=== PATIENT | female | born 1935 | race Caucasian/White ===

== ENCOUNTER → 2018-09-27 12:58 | Outpatient (CLI) | payer MEDICARE, OTHER, SELFPAY ==
[2018-09-27 13:17] LABS: Hematocrit 41.2 % (37-47); Hemoglobin 13.5 g/dl (12.0-15.0); Mean Corp Hgb Conc 32.8 g/gl (32-36); Mean Corpuscular Volume 91.6 fL (81-99); Mean Platelet Vol. 10.7 fl (6.2-12.0); Platelet Count 226 K/mm3 (150-450); RBC Distribution Width CV 13.3 % (11.6-14.6); RBC Distribution Width SD 43.9 fl (35.1-43.9); White Blood Count 6.6 K/mm3 (4.4-11.0)
--- NOTE | 2018-09-27 13:17 | EKG12_ITS ---
Test Reason : PRE-OP Blood Pressure : / mmHG Vent. Rate : 072 BPM Atrial Rate : 072 BPM P-R Int : 154 ms QRS Dur : 082 ms QT Int : 412 ms P-R-T Axes : 068 -05 028 degrees QTc Int : 451 ms Normal sinus rhythm Nonspecific ST abnormality Abnormal ECG Confirmed by YFN SCHREIBER, LAUREL ([id number]), assistant film editor RIVERA HUTSON ([id number] on 09/28/2018 3:24:30 PM Referred By: Chano Sterling Confirmed By:LAUREL COULTER MD
[2018-09-27 13:18] LABS: Scan Indicated on CBC? Y/N NO
[2018-09-27 13:38] LABS: Anion Gap 11 (5-15); BUN 13 mg/dL (7-18); Calcium,Total 8.8 mg/dL (8.5-10.1); Chloride 102 mmol/L (98-107); Creatinine, Serum 0.68 mg/dL (0.55-1.02); EST Glomerular Filtration Rate 88 mL/min (>60); Est Glom Filt Rate - Afr Amer 106 mL/min (>60); Glucose 102 mg/dL (74-106); Potassium 3.7 mmol/L (3.5-5.1); Sodium Level 140 mmol/L (136-145)
--- OUTSIDE RECORDS SUMMARY | 2018-12-30 03:53 | XMS RPT_ITS ---
:1935 Author Organization OHIP Support Name Relationship Address Phone R Unavailable Unavailable Unavailable SIEGRIST, MATIAS Unavailable [address] + [place] [address] R Unavailable Unavailable Unavailable SIEGRIST, MATIAS Unavailable [address] + [place] [address] SIEGRIST, FORREST Unavailable [address] + [place] [address] SIEGRIST, FORREST Unavailable [address] + [place] [id number] SIEGRIST, FORREST Unavailable [address] + [place] [address] SIEGRIST, FORREST Unavailable [address] + [place] [address] SIEGRIST, FORREST Unavailable [address] + [place] [address] SIEGRIST, FORREST Unavailable [address] + [place] [address] SIEGRIST, FORREST Unavailable [address] + [place] [address] SIEGRIST, FORREST Unavailable [address] + [place] [address] SIEGRIST, FORREST Unavailable [address] + [place] [address] SIEGRIST, FORREST Unavailable [address] + [place] [address] SIEGRIST, FORREST Unavailable [address] + [place] [address] SIEGRIST, FORREST Unavailable [address] + [place] [address] Care Team Providers Name Role Phone HARSHA RUIZ MD Attending Kaylah LAKE MD., DR. LEXY Crawford Primary Care Unavailable HARSHA RUIZ MD Attending Unavailable GABRIELA HOLRBOOK, DR. LEXY Crawford Primary Care Unavailable HARSHA RUIZ MD Attending Unavailable GABRIELA HOLBROOK, DR. LEXY Crawford Primary Care Unavailable HARSHA RUIZ MD Attending Unavailable GABRIELA HOLBROOK, DR. LEXY Crawford Primary Care Unavailable HARSHA RUIZ MD Attending Unavailable GABRIELA HOLBROOK, DR. LEXY Crawford Primary Care Unavailable HARSHA RUIZ MD Attending Unavailable GABRIELA HOLBROOK, DR. LEXY Crawford Primary Care Unavailable Chano Sterling Attending Unavailable Chano Sterling Referring Unavailable LEXY LAKE Primary Care Unavailable Yeison Bray Attending Unavailable Chano Sterling Referring Unavailable PROBLEMS PROBLEMS DATE TYPE CONDITION / CODE ATTENDING STATUS SOURCE 09/27/2018 Unknown Z01.810 - Encounter Chano Sterling Active Jered for preprocedural [facility] examination / Repository Z01.810(ICD-10) 09/27/2018 Unknown Z01.818 - Encounter Chano Sterling Active Jered for other [facility] preprocedural Hospital examination / Repository Z01.818(ICD-10) 10/20/2018 Unknown R94.31 - Abnormal Yeison Bray Active Jered electrocardiogram Community [ECG] [EKG] / Hospital R94.31(ICD-10) Repository PROCEDURES PROCEDURES No Procedure Records FoundRESULTS RESULTS 12 LEAD ELECTROCARDIOGRAM Observed: 09/28/2018 Status: F Source: JERED 3:24 PM [facility] REPOSITORY [facility] Cardiovascular Services [address] [place] [address] 12 Lead EKG 09/27/18 1330 MR#: [id number] Acct: [id number] Name: EVERARDO ELIZONDO Rep #: [id number] : 1935 82 From: Yeison Bray MD Attending Dr: Chano Pro Status: REG CLI Ordering Dr: Chano Sterling PA-C Date: 09/27/18 Location: LAB Sex: F C Admitted: Test Reason : PRE-OP Blood Pressure : / mmHG Vent. Rate : 072 BPM Atrial Rate : 072 BPM P-R Int : 154 ms QRS Dur : 082 ms QT Int : 412 ms P-R-T Axes : 068 -05 028 degrees QTc Int : 451 ms Normal sinus rhythm Nonspecific ST abnormality Abnormal ECG Confirmed by YFN SCHREIBER, YEISON ([id number]), acquisitions editor RIVERA HUTSON ([id number]) on 09/28/2018 3:24:30 PM Referred By: Chano Sterling Confirmed By:YEISON BRAY MD 09/28/18 1524 Date Yeison Bray MD CC: Lexy Lake MD; Chano GUNDERSON Signed CBC-COMPLETE BLOOD CNT Collected: 09/27/2018 Status: F Source: JERED NO DIFF 1:07 PM [facility] REPOSITORY TYPE CODE TESTS RESULT OUT OF RANGE REFERENCE UNITS LAB L100.1000 4.4-11.0 K/mm3 Normal WBC 6.6 LAB L100.1200 4.2-5.4 M/mm3 Normal RBC 4.50 LAB L100.1300 12.0-15.0 g/dl Normal HGB 13.5 LAB L100.1400 37-47 % Normal HCT 41.2 LAB L100.1500 81-99 fL Normal MCV 91.6 LAB L100.1600 27.0-32.0 pg Normal MCH 30.0 LAB L100.1700 32-36 g/gl Normal MCHC 32.8 LAB L100.1810 11.6-14.6 % Normal RDW CV 13.3 LAB L100.1820 35.1-43.9 fl Normal RDW SD 43.9 LAB L100.1900 150-450 K/mm3 Normal PLT 226 LAB L100.2000 6.2-12.0 fl Normal MPV 10.7 Performed By: #### L100.0500 #### [facility] [address] [place], [address] BASIC METABOLIC Collected: 09/27/2018 Status: F Source: JERED PROFILE (BMP) 1:07 PM [facility] REPOSITORY TYPE CODE TESTS RESULT OUT OF RANGE REFERENCE UNITS LAB L501.0100 74-106 mg/dL Normal GLU 102 Result Comment: Fasting Glucose result from 100 to 125 mg/dL suggests IMPAIRED HOMEOSTASIS per A.D.A. criteria. Please note revised GLUCOSE reference range effective 2017. LAB L501.1000 7-18 mg/dL Normal BUN 13 LAB L501.1100 0.55-1.02 mg/dL Normal CREAT,SERUM 0.68 Result Comment: The validity of the calculated GFR AND GFRAA in patients over 70 years has not been determined. Clinical correlation is essential. LAB L501.1110 >60 mL/min Normal EST GFR 88 Result Comment: Non- GFR Calc LAB L501.1115 >60 mL/min Normal EST GFR - AA 106 Result Comment: GFR Calc LAB L501.1300 10-20 RATIO Normal BUN/CRE 19.0 LAB L501.2200 8.5-10.1 mg/dL CA Normal 8.8 LAB L501.5300 136-145 mmol/L NA Normal 140 LAB L501.5600 3.5-5.1 mmol/L K Normal 3.7 LAB L501.5900 98-107 mmol/L CL Normal 102 LAB L501.6100 21.0-32.0 mmol/L Normal CO2 27.0 LAB L501.6200 5-15 Normal GAP 11 Performed By: #### L500.2500 #### [facility] [address] [place], [address] CMP Collected: 08/24/2018 Status: F Source: [facility] 11:09 AM [facility] REPOSITORY TYPE CODE TESTS RESULT OUT OF REFERENCE UNITS RANGE LAB GLU(LOINC) 83-110 mg/dL Glucose Level 104 LAB NA(LOINC) 136-145 mmol/L Sodium Level 140 LAB K(LOINC) 3.5-5.1 mmol/L Potassium Level 3.9 LAB CL(LOINC) 98-107 mmol/L Chloride 103 LAB CO2(LOINC) 23-31 mmol/L CO2 30 LAB EBAL(LOINC mEq/L ) Electrolyte Balance 7.0 LAB BUN(LOINC) 7-18 mg/dL BUN High 19 LAB CRE(LOINC) 0.55-1.02 mg/dL Creatinine Lvl (s) 0.75 LAB BC(LOINC) 7-27 ratio BUN/Creatinine 25 Ratio LAB CA(LOINC) 8.4-10.2 mg/dL Calcium Lvl 8.7 LAB PROT(LOINC 6.4-8.2 G/dL ) Total Protein 7.0 LAB ALB(LOINC) 3.4-4.8 G/dL Albumin Level 3.7 LAB GLB(LOINC) G/dL Globulin 3.3 LAB AG(LOINC) 1.1-2.5 ratio A/G Ratio 1.1 LAB BILT(LOINC 0.2-1.0 mg/dL ) Bili Total 0.4 LAB AP(LOINC) 40-135 U/L Alk Phos 117 LAB AST(LOINC) 10-40 U/L AST/SGOT 19 LAB ALT(LOINC) 10-35 U/L ALT/SGPT 28 Performed By: #### CMP, GFR, CA27, CA15 #### [facility] [address] [place] [address] #### CBC, ADIFF, ANEU #### [address] [address] .GFR Collected: 08/24/2018 Status: F Source: [facility] 11:09 AM [facility] REPOSITORY TYPE CODE TESTS RESULT OUT OF REFERENCE UNITS RANGE LAB GFRAA(LOINC ml/min/1.73 ) sqm GFR 90 [place]kin[place] Result Comment: GFR Population mean for , Non- Americans Ages 20-29 = 116 mL/min/1.73 sq.m. Ages 30-39 = 107 mL/min/1.73 sq.m. Ages 40-49 = 99 mL/min/1.73 sq.m. Ages 50-59 = 93 mL/min/1.73 sq.m. Ages 60-69 = 85 mL/min/1.73 sq.m. Ages 70+ = 75 mL/min/1.73 sq.m. Chronic Kidney Disease: Less than 60 mL/min/1.73 square meters End Stage Renal Disease: Less than 15 mL/min/1.73 square meters LAB GFRNO(LOINC) ml/min/1.73sqm GFR Non- 74 Result Comment: GFR Population mean for , Non- Americans Ages 20-29 = 116 mL/min/1.73 sq.m. Ages 30-39 = 107 mL/min/1.73 sq.m. Ages 40-49 = 99 mL/min/1.73 sq.m. Ages 50-59 = 93 mL/min/1.73 sq.m. Ages 60-69 = 85 mL/min/1.73 sq.m. Ages 70+ = 75 mL/min/1.73 sq.m. Chronic Kidney Disease: Less than 60 mL/min/1.73 square meters End Stage Renal Disease: Less than 15 mL/min/1.73 square meters Performed By: #### CMP, GFR, CA27, CA15 #### [address] [address] #### CBC, ADIFF, ANEU #### [address] [address] CBC Collected: 08/24/2018 Status: F Source: [facility] 11:09 AM [facility] REPOSITORY TYPE CODE TESTS RESULT OUT OF REFERENCE UNITS RANGE LAB WBC(LOINC) 4.60-10.80 10 3/mcL WBC 5.50 LAB RBCCT(LOINC 4.20-5.40 10 6/mcL ) RBC 4.72 LAB HGB(LOINC) 12.0-16.0 G/dL Hgb 14.1 LAB HCT(LOINC) 37.0-47.0 % Hct 42.9 LAB MCV(LOINC) 80.0-94.0 fL MCV 90.8 LAB MCH(LOINC) 27.0-31.2 pg MCH 29.8 LAB MCHC(LOINC) 33.0-37.0 G/dL Low MCHC 32.9 LAB RDW(LOINC) 11.5-14.5 % RDW 13.3 LAB PLT(LOINC) 130-400 10 3/mcL Platelet 170 LAB MPV(LOINC) 7.4-10.4 fL MPV 9.7 Performed By: #### CMP, GFR, CA27, CA15 #### [address] [address] #### CBC, ADIFF, ANEU #### [address] [address] .AUTO DIFF Collected: 08/24/2018 Status: F Source: [facility] 11:09 AM [facility] REPOSITORY TYPE CODE TESTS RESULT OUT OF REFERENCE UNITS RANGE LAB LOLA(LOINC) 37.0-80.0 % Neutrophil % 65.9 LAB LYM(LOINC) 10.0-50.0 % Lymphocyte % 25.4 LAB MON(LOINC) 1.7-13.0 % Monocyte % 7.5 LAB EO(LOINC) 0.0-7.0 % Eosinophil % 0.8 LAB BAS(LOINC) 0.0-2.5 % Basophil % 0.4 LAB ABLYM(LOIN 0.77-3.85 10 3/mcL C) Lymphocyte, 1.40 Absolute LAB EMERALD(LOINC 0.15-1.00 10 3/mcL ) Monocyte, 0.40 Absolute LAB AEOS(LOINC 0.00-0.40 10 3/mcL ) Eosinophil, 0.00 Absolute LAB ABAS(LOINC 0.00-0.19 10 3/mcL ) Basophil, 0.00 Absolute Performed By: #### CMP, GFR, CA27, CA15 #### [place] [address] #### CBC, ADIFF, ANEU #### [address] [address] .NEUABS Collected: 08/24/2018 Status: F Source: [facility] 11:09 AM [facility] REPOSITORY TYPE CODE TESTS RESULT OUT OF REFERENCE UNITS RANGE LAB ANEU(LOINC) 2.85-6.16 10 3/mcL Neutrophil, 3.70 Absolute Performed By: #### CMP, GFR, CA27, CA15 #### [place] [address] #### CBC, ADIFF, ANEU #### [address] [address] CA27 Collected: 08/24/2018 Status: F Source: [facility] 11:09 [facility] REPOSITORY TYPE CODE TESTS RESULT OUT OF RANGE REFERENCE UNITS LAB CA27(LOINC) 0.0-38.6 U/mL CA 27.29 35.5 Performed By: #### CMP, GFR, CA27, CA15 #### [place] [address] #### CBC, ADIFF, ANEU #### [address] [address] CA15 Collected: 08/24/2018 Status: F Source: [facility] 11:09 AM [facility] REPOSITORY TYPE CODE TESTS RESULT OUT OF RANGE REFERENCE UNITS LAB CA15(LOINC) 0.0-47.0 U/mL High CA 15-3 49.2 Performed By: #### CMP, GFR, CA27, CA15 #### [facility] [address] [place], [place] [id number] #### CBC, ADIFF, ANEU #### [facility] [address] [place], [place] [address] CT THORAX W/ CONTRAST Observed: 05/25/2018 Status: F Source: [facility] 9:45 AM [facility] REPOSITORY ORIGINAL CT THORAX W/ CONTRAST CLINICAL STATEMENT: BREAST CA COMPARISON: 12/01/2017 FINDINGS:There is been a LEFT axillary dissection. Calcified plaque is seen within the aorta which is normal caliber. The major airways and main pulmonary arteries are normal in appearance. The esophagu s is normal in course and caliber. A stable RIGHT hilar lymph node is seen which measures 9 mm in short axis. No mediastinal or hilar adenopathy is identified. Limited images through the upper abdomen redemonstrates multiple hepatic cysts. The CT of the abdomen and pelvis will be reported separately. No pleural effusion is identified. Emphysematous changes are again seen within the lungs. The previously identified 5 mm nodule within the RIGHT upper lobe on image #31 has not significantly changed. Two 3 mm nodules are seen within the RIGHT lower lobe on image #38, not significantly changed. A stable 6 mm nodule seen at the RIGHT lung base on image #64. No new pulmonary nodules or masses are ident ified. No acute infiltrate is seen. Degenerative changes are seen within the spine. No suspicious osseous lesion is identified. IMPRESSION:Stable tiny pulmonary nodules. There has been no significant change from the prior exam. This exam was performed according to our departmental dose optimization program, and includes the following measures where applicable: automated exposure control, adjustment of the mAs and/or kVp accord ing to patient size and/or exam, and an iterative reconstruction algorithm. Interpreted By: Michelle Greene MD Preliminary Report By: Michelle Greene MD Electronically Signed By: Michelle Greene MD Dictated Date: 05/26/2018 1:16:02 PM Prelim Date: 05/26/2018 1:16:02 PM Sign Date: 05/26/2018 1:25:[address] ABDOMEN/PELVIS Observed: 05/25/2018 Status: F Source: [facility] W/CONTRAST 9:30 AM [facility] REPOSITORY ORIGINAL CT ABDOMEN/PELVIS W/CONTRAST CLINICAL STATEMENT: BREAST CA. COMPARISON: CT abdomen and pelvis 12/01/2017 TECHNIQUE: Axial images were obtained from the lung bases through the pubic symphysis after the administration of IV and PO contrast. Coronal and sagittal reformatted images were generated from the axia l dataset. This exam was performed according to our departmental dose optimization program, and includes the following measures where applicable: automated exposure control, adjustment of the mAs and/or kVp according to patient size and/or exam, and an iterative reconstruction algorithm. FINDINGS: CT thorax will be reported separately. There are stable hepatic hypodensities. The spleen, adrenal glands, gallbladder and biliary system and pancreas are within normal limits. The kidneys enhance symmetrically. There are stable bilateral renal cysts. No hydronephrosis. The large and small bowel are normal in caliber. There is colonic diverticulosis without CT evidence of acute diverticulitis. The appendix is reportedly surgically absent. No free intraperitoneal fluid or air is identified. No pathologically enlarged lymph nodes. The aorta is atherosclerotic without aneurysmal dilation. The uterus is present. No adnexal masses. The bladder is grossly within normal limits. Surgical clips are seen within the RIGHT inguinal region. Degenerative changes are seen within the spine. There is redemonstration of a sclerotic lesion within the posterior aspect of the L3 vertebral body which is not significantly changed. No new osseous lesions. IMPRESSION: No acute process or significant interval change. Interpreted By: Elsa Bravo MD Preliminary Report By: Elsa Bravo MD Electronically Signed By: Elsa Bravo MD Dictated Date: 05/26/2018 8:38:33 AM Prelim Date: 05/26/2018 8:43:42 AM Sign Date: 05/26/2018 8:51:18 PM CBC Collected: 05/18/2018 Status: F Source: [place] [place] 9:50 AM [facility] REPOSITORY TYPE CODE TESTS RESULT OUT OF REFERENCE UNITS RANGE LAB WBC(LOINC) 4.60-10.80 10 3/mcL WBC 4.90 LAB RBCCT(LOINC 4.20-5.40 10 6/mcL ) RBC 4.54 LAB HGB(LOINC) 12.0-16.0 G/dL Hgb 13.8 LAB HCT(LOINC) 37.0-47.0 % Hct 40.9 LAB MCV(LOINC) 80.0-94.0 fL MCV 90.2 LAB MCH(LOINC) 27.0-31.2 pg MCH 30.4 LAB MCHC(LOINC) 33.0-37.0 G/dL MCHC 33.7 LAB RDW(LOINC) 11.5-14.5 % RDW 13.4 LAB PLT(LOINC) 130-400 10 3/mcL Platelet 168 LAB MPV(LOINC) 7.4-10.4 fL MPV 9.5 Performed By: #### CBC, ADIFF, ANEU #### [address] [address] #### CMP, GFR, CA27, CA15 #### [address] [address] .AUTO DIFF Collected: 05/18/2018 Status: F Source: [facility] 9:50 AM [facility] REPOSITORY TYPE CODE TESTS RESULT OUT OF REFERENCE UNITS RANGE LAB LOLA(LOINC) 37.0-80.0 % Neutrophil % 56.4 LAB LYM(LOINC) 10.0-50.0 % Lymphocyte % 33.1 LAB MON(LOINC) 1.7-13.0 % Monocyte % 8.6 LAB EO(LOINC) 0.0-7.0 % Eosinophil % 1.5 LAB BAS(LOINC) 0.0-2.5 % Basophil % 0.4 LAB ABLYM(LOIN 0.77-3.85 10 3/mcL C) Lymphocyte, 1.60 Absolute LAB EMERALD(LOINC 0.15-1.00 10 3/mcL ) Monocyte, 0.40 Absolute LAB AEOS(LOINC 0.00-0.40 10 3/mcL ) Eosinophil, 0.10 Absolute LAB ABAS(LOINC 0.00-0.19 10 3/mcL ) Basophil, 0.00 Absolute Performed By: #### CBC, ADIFF, ANEU #### [address] [address] #### CMP, GFR, CA27, CA15 #### [address] [place], [place] [address] .NEUABS Collected: 05/18/2018 Status: F Source: [facility] 9:50 AM [facility] REPOSITORY TYPE CODE TESTS RESULT OUT OF REFERENCE UNITS RANGE LAB ANEU(LOINC) 2.85-6.16 10 3/mcL Low Neutrophil, 2.80 Absolute Performed By: #### CBC, ADIFF, ANEU #### [place] [address] [address] #### CMP, GFR, CA27, CA15 #### [address] [address] CMP Collected: 05/18/2018 Status: F Source: [facility] 9:50 AM [facility] REPOSITORY TYPE CODE TESTS RESULT OUT OF REFERENCE UNITS RANGE LAB GLU(LOINC) 83-110 mg/dL Glucose High Level 112 LAB NA(LOINC) 136-145 mmol/L Sodium Level 141 LAB K(LOINC) 3.5-5.1 mmol/L Potassium Level 3.8 LAB CL(LOINC) 98-107 mmol/L Chloride 105 LAB CO2(LOINC) 23-31 mmol/L CO2 28 LAB EBAL(LOINC mEq/L ) Electrolyte Balance 8.0 LAB BUN(LOINC) 7-18 mg/dL BUN 15 LAB CRE(LOINC) 0.55-1.02 mg/dL Creatinine Lvl (s) 0.71 LAB BC(LOINC) 7-27 ratio BUN/Creatinine 21 Ratio LAB CA(LOINC) 8.4-10.2 mg/dL Calcium Lvl 8.8 LAB PROT(LOINC 6.4-8.2 G/dL ) Total Protein 6.8 LAB ALB(LOINC) 3.4-4.8 G/dL Albumin Level 3.6 LAB GLB(LOINC) G/dL Globulin 3.2 LAB AG(LOINC) 1.1-2.5 ratio A/G Ratio 1.1 LAB BILT(LOINC 0.2-1.0 mg/dL ) Bili Total 0.3 LAB AP(LOINC) 40-135 U/L Alk Phos 100 LAB AST(LOINC) 10-40 U/L AST/SGOT 24 LAB ALT(LOINC) 10-35 U/L ALT/SGPT 33 Performed By: #### CBC, ADIFF, ANEU #### [place] [address] [place], [place] [address] #### CMP, GFR, CA27, CA15 #### [address] [address] .GFR Collected: 05/18/2018 Status: F Source: [facility] 9:50 AM [facility] REPOSITORY TYPE CODE TESTS RESULT OUT OF REFERENCE UNITS RANGE LAB GFRAA(LOINC ml/min/1.73 ) sqm GFR 96 [place] Result Comment: GFR Population mean for , Non- Americans Ages 20-29 = 116 mL/min/1.73 sq.m. Ages 30-39 = 107 mL/min/1.73 sq.m. Ages 40-49 = 99 mL/min/1.73 sq.m. Ages 50-59 = 93 mL/min/1.73 sq.m. Ages 60-69 = 85 mL/min/1.73 sq.m. Ages 70+ = 75 mL/min/1.73 sq.m. Chronic Kidney Disease: Less than 60 mL/min/1.73 square meters End Stage Renal Disease: Less than 15 mL/min/1.73 square meters LAB GFRNO(LOINC) ml/min/1.73sqm GFR Non- 79 Result Comment: GFR Population mean for , Non- Americans Ages 20-29 = 116 mL/min/1.73 sq.m. Ages 30-39 = 107 mL/min/1.73 sq.m. Ages 40-49 = 99 mL/min/1.73 sq.m. Ages 50-59 = 93 mL/min/1.73 sq.m. Ages 60-69 = 85 mL/min/1.73 sq.m. Ages 70+ = 75 mL/min/1.73 sq.m. Chronic Kidney Disease: Less than 60 mL/min/1.73 square meters End Stage Renal Disease: Less than 15 mL/min/1.73 square meters Performed By: #### CBC, ADIFF, ANEU #### [place] [address] [place], [place] [address] #### CMP, GFR, CA27, CA15 #### [address] [address] CA27 Collected: 05/18/2018 Status: F Source: [facility] 9:50 AM [facility] REPOSITORY TYPE CODE TESTS RESULT OUT OF RANGE REFERENCE UNITS LAB CA27(LOINC) 0.0-38.6 U/mL High CA 27.29 39.3 Performed By: #### CBC, ADIFF, ANEU #### [address] [address] #### CMP, GFR, CA27, CA15 #### [address] [address] CA15 Collected: 05/18/2018 Status: F Source: [facility] 9:50 AM [facility] REPOSITORY TYPE CODE TESTS RESULT OUT OF RANGE REFERENCE UNITS LAB CA15(LOINC) 0.0-47.0 U/mL High CA 15-3 54.3 Performed By: #### CBC, ADIFF, ANEU #### [address] [address] #### CMP, GFR, CA27, CA15 #### [address] [address] CBC Collected: 01/27/2018 Status: F Source: [facility] 9:39 AM [facility] REPOSITORY TYPE CODE TESTS RESULT OUT OF REFERENCE UNITS RANGE LAB WBC(LOINC) 4.60-10.80 10 3/mcL WBC 5.40 LAB RBCCT(LOINC 4.20-5.40 10 6/mcL ) RBC 4.70 LAB HGB(LOINC) 12.0-16.0 G/dL Hgb 14.4 LAB HCT(LOINC) 37.0-47.0 % Hct 42.5 LAB MCV(LOINC) 80.0-94.0 fL MCV 90.4 LAB MCH(LOINC) 27.0-31.2 pg MCH 30.5 LAB MCHC(LOINC) 33.0-37.0 G/dL MCHC 33.8 LAB RDW(LOINC) 11.5-14.5 % RDW 14.0 LAB PLT(LOINC) 130-400 10 3/mcL Platelet 185 LAB MPV(LOINC) 7.4-10.4 fL MPV 9.9 Performed By: #### CBC, ADIFF, ANEU, CMP, GFR #### [address] [address] #### CA27, CA15 #### [place] [address] .AUTO DIFF Collected: 01/27/2018 Status: F Source: [facility] 9:39 AM [facility] REPOSITORY TYPE CODE TESTS RESULT OUT OF REFERENCE UNITS RANGE LAB LOLA(LOINC) 37.0-80.0 % Neutrophil % 55.6 LAB LYM(LOINC) 10.0-50.0 % Lymphocyte % 32.4 LAB MON(LOINC) 1.7-13.0 % Monocyte % 9.4 LAB EO(LOINC) 0.0-7.0 % Eosinophil % 2.0 LAB BAS(LOINC) 0.0-2.5 % Basophil % 0.6 LAB ABLYM(LOIN 0.77-3.85 10 3/mcL C) Lymphocyte, 1.70 Absolute LAB EMERALD(LOINC 0.15-1.00 10 3/mcL ) Monocyte, 0.50 Absolute LAB AEOS(LOINC 0.00-0.40 10 3/mcL ) Eosinophil, 0.10 Absolute LAB ABAS(LOINC 0.00-0.19 10 3/mcL ) Basophil, 0.00 Absolute Performed By: #### CBC, ADIFF, ANEU, CMP, GFR #### [place] [address] #### CA27, CA15 #### [place] [address] .NEUABS Collected: 01/27/2018 Status: F Source: [facility] 9:39 AM [facility] REPOSITORY TYPE CODE TESTS RESULT OUT OF REFERENCE UNITS RANGE LAB ANEU(LOINC) 2.85-6.16 10 3/mcL Neutrophil, 3.00 Absolute Performed By: #### CBC, ADIFF, ANEU, CMP, GFR #### [place] [address] #### CA27, CA15 #### [place] [address] CMP Collected: 01/27/2018 Status: F Source: [facility] 9:39 AM [facility] REPOSITORY TYPE CODE TESTS RESULT OUT OF REFERENCE UNITS RANGE LAB 1547-9 83-110 mg/dL GLUCOSE 87 LAB NA(LOINC) 136-146 mEq/L Sodium Level 141 LAB K(LOINC) 3.5-5.1 mEq/L Potassium Level 3.9 LAB CL(LOINC) 98-107 mEq/L Chloride 102 LAB CO2(LOINC) 23-31 mEq/L CO2 30 LAB EBAL(LOINC mEq/L ) Electrolyte Balance 9.0 LAB BUN(LOINC) 7.0-18.0 mg/dL BUN 14.8 LAB CRE(LOINC) 0.6-1.2 mg/dL Creatinine Lvl (s) 0.7 LAB BC(LOINC) 7-27 ratio BUN/Creatinine 21 Ratio LAB CA(LOINC) 8.4-10.2 mg/dL Calcium Lvl 9.4 LAB PROT(LOINC 6.0-8.3 G/dL ) Total Protein 7.1 LAB ALB(LOINC) 3.4-4.8 G/dL Albumin Level 4.4 LAB GLB(LOINC) G/dL Globulin 2.7 LAB AG(LOINC) 1.1-2.5 ratio A/G Ratio 1.6 LAB BILT(LOINC 0.2-1.0 mg/dL ) Bili Total 0.3 LAB AP(LOINC) 40-135 IU/L Alk Phos 110 LAB AST(LOINC) 10-40 IU/L AST/SGOT 25 LAB ALT(LOINC) 10-35 IU/L ALT/SGPT 30 Performed By: #### CBC, ADIFF, ANEU, CMP, GFR #### [address] [address] #### CA27, CA15 #### [address] [address] .GFR Collected: 01/27/2018 Status: F Source: [facility] 9:39 AM [facility] REPOSITORY TYPE CODE TESTS RESULT OUT OF REFERENCE UNITS RANGE LAB GFRAA(LOINC ml/min/1.73 ) sqm GFR 96 [place] Result Comment: GFR Population mean for , Non- Americans Ages 20-29 = 116 mL/min/1.73 sq.m. Ages 30-39 = 107 mL/min/1.73 sq.m. Ages 40-49 = 99 mL/min/1.73 sq.m. Ages 50-59 = 93 mL/min/1.73 sq.m. Ages 60-69 = 85 mL/min/1.73 sq.m. Ages 70+ = 75 mL/min/1.73 sq.m. Chronic Kidney Disease: Less than 60 mL/min/1.73 square meters End Stage Renal Disease: Less than 15 mL/min/1.73 square meters LAB GFRNO(LOINC) ml/min/1.73sqm GFR Non- >60 Result Comment: GFR Population mean for , Non- Americans Ages 20-29 = 116 mL/min/1.73 sq.m. Ages 30-39 = 107 mL/min/1.73 sq.m. Ages 40-49 = 99 mL/min/1.73 sq.m. Ages 50-59 = 93 mL/min/1.73 sq.m. Ages 60-69 = 85 mL/min/1.73 sq.m. Ages 70+ = 75 mL/min/1.73 sq.m. Chronic Kidney Disease: Less than 60 mL/min/1.73 square meters End Stage Renal Disease: Less than 15 mL/min/1.73 square meters Performed By: #### CBC, ADIFF, ANEU, CMP, GFR #### [address] [address] #### CA27, CA15 #### [address] [address] CA27 Collected: 01/27/2018 Status: F Source: [facility] 9:39 AM [facility] REPOSITORY TYPE CODE TESTS RESULT OUT OF RANGE REFERENCE UNITS LAB CA27(LOINC) 0.0-38.6 U/mL CA 27.29 30.0 Performed By: #### CBC, ADIFF, ANEU, CMP, GFR #### [address] [address] #### CA27, CA15 #### [address] [address] CA15 Collected: 01/27/2018 Status: F Source: [facility] 9:39 AM [facility] REPOSITORY TYPE CODE TESTS RESULT OUT OF RANGE REFERENCE UNITS LAB CA15(LOINC) 0.0-47.0 U/mL High CA 15-3 50.6 Performed By: #### CBC, ADIFF, ANEU, CMP, GFR #### [facility] [address] [place], [place] [address] #### CA27, CA15 #### [place] [id number] [place] [id number] THORAX W/ CONTRAST Observed: 12/01/2017 Status: F Source: [email or web address] 10:45 AM [facility] REPOSITORY ORIGINAL CT THORAX W/ CONTRAST: Multiplanar coronal, sagittal, axial reconstructions were created and reviewed by the radiologist on a separate workstation. This exam was performed according to our departmental dose optimization progr am, and includes the following measures where applicable: automated exposure control, adjustment of the mAs and/or kVp according to patient size and/or exam, and an iterative reconstruction algorithm. CLINICAL STATEMENT:BREAST CA, PULMONARY METASTATIS, follow- up, history of radiation approximately one year ago COMPARISON: CT thorax dated 03/26/2017 FINDINGS: The heart is not enlarged. No pericardial effusion is seen. The great vessels are normal in caliber. There is minimal calcified atherosclerosis of the aortic arch. The esophagus is normal in caliber. The thyroid gland is normal. No axillary, hilar, or mediastinal lymphadenopathy is identified. Previously described enlarged right paratracheal lymph node has decreased in size and is no longer pathologically enlarged, currently me asuring 9 mm and previously measuring 1.2 cm in short axis. Surgical clips are noted in the left axilla. There are multiple scattered pulmonary nodules that of either decreased in size or remained stable. There is decrease in size of nodular density in the right upper lobe (image 32). Previously described 5 mm pulmonary nodule in the right upper lobe has resolved. Nodular thickening along the left major fissure has improved with the largest nodule measuring 5 mm, previously measuring 9 mm (image 24). The juxtapleural nodules in the left lower lobe have significantly decreased in size with a residual no dule measuring 5 mm (image 48). Nodules adjacent to the left pericardium have nearly completely resolved. There are multiple stable pulmonary nodules. There are a few scattered small pulmonary nodules in left lung apex. The largest of these measures up to 5 mm (image 11). A second software support representative pulmonary n odule in the left lung apex measures 4 mm (image 14). Posterior juxtapleural nodules of the right lower lobe are unchanged (image 51). There is a 3 mm pulmonary nodule in the right lower lobe (image 39) . There is a right lower lobe juxtapleural nodule measuring 3 mm (image 39). All these pulmonary nodules are stable. There is mild paraseptal emphysema most in the bilateral lung apices. No pneumothorax, pleural effusion, or focal consolidation is seen. The trachea and mainstem bronchi are patent. No suspicious osseous lesions are identified. Please see separately dictated CT abdomen/pelvis from the same day for intra-abdominal findings. IMPRESSION: Overall decrease in size and number of pulmonary nodules with some pulmonary nodules remaining unchanged. Decrease in size of mediastinal lymph nodes with no evidence of mediastinal or hilar lymphadenopathy. I have personally reviewed the images of this examination and agree with the resident's findings and interpretation. Interpreted By: Cathi Caldwell MD Preliminary Report By: Lindsay Fine DO Electronically Signed By: Cathi Caldwell MD Dictated Date: 12/01/2017 2:16:05 PM Prelim Date: 12/02/2017 8:49:40 AM Sign Date: 12/02/2017 9:37:[address] ABDOMEN/PELVIS Observed: 12/01/2017 Status: F Source: [place] W/CONTRAST 10:30 AM [facility] REPOSITORY ORIGINAL CT ABDOMEN/PELVIS WITH IV AND ORAL CONTRAST: Multiplanar coronal, sagittal, and axial reconstructions were reviewed on a separate workstation. This exam was performed according to our departmental dose optimization program, and includes the follow ing measures where applicable: automated exposure control, adjustment of the mAs and/or kVp according to patient size and/or exam, and an iterative reconstruction algorithm. CLINICAL STATEMENT: BREAST CA, PULMONARY METASTATIS, follow- up, observe for malignancy COMPARISON: PET/CT dated 11/27/2016, CT abdomen/pelvis dated 05/30/2010 FINDINGS: Please see separately dictated CT thorax from the same day for intrathoracic findings. Multiple hypodensities in the liver are unchanged and consistent with liver cysts. The largest of these cysts is in the inferior right hepatic lobe measuring 2.6 cm (image 34, series 4). The liver is otherwise unremarkable. The gallbladder, pancreas, spleen, and adrenal glands are within normal limits. There is no evidence of hydronephrosis. There are bilateral renal cysts, unchanged. There is an irregular hypodensity within the right kidney on axial imaging that is likely the renal medulla when compared to coronal imaging. The bladder is well distended without focal mass or wall thickening. The uterus and adnexa are unremarkable. There is no free pelvic fluid. The small bowel exhibits no luminal dilatation or wall thickening. The colon is normal in caliber. The appendix is reported as surgically absent. Surgical clips are noted in the right inguinal region wi th adjacent fluid attenuating area consistent with history of hernia repair. There is no abdominal ascites or free intraperitoneal air. The abdominal aorta and IVC are of normal caliber. There is moderate calcified atherosclerosis of the abdominal aorta. No lymphadenopathy is seen in the abdomen or pelvis. There is a sclerotic lesion at L3, consistent with the known metastatic lesion. This area appears more sclerotic than prior PET/CT dated 11/27/2016, currently measuring 2.1 x 2.9 cm. Previously described soft tissue components of this lesion is not well visualized on this exam. No new osseous lesion is identified. IMPRESSION: No evidence of metastatic disease in the abdominal or pelvic cavities. L3 vertebral body lesion is more sclerotic on today's exam. Previously described soft tissue component is not well visualized. No new osseous lesions. I have personally reviewed the images of this examination and agree with the resident's findings and interpretation. Interpreted By: Cathi Caldwell MD Preliminary Report By: Lindsay Fine DO Electronically Signed By: Cathi Caldwell MD Dictated Date: 12/02/2017 8:50:33 AM Prelim Date: 12/02/2017 9:13:56 AM Sign Date: 12/02/2017 9:35:11 AM CBC Collected: 11/04/2017 Status: F Source: [facility] 11:35 AM [facility] REPOSITORY TYPE CODE TESTS RESULT OUT OF REFERENCE UNITS RANGE LAB WBC(LOINC) 4.50-10.80 10 3/mcL WBC 5.70 LAB RBCCT(LOINC 4.10-5.30 10 6/mcL ) RBC 4.65 LAB HGB(LOINC) 12.0-16.0 G/dL Hgb 14.2 LAB HCT(LOINC) 34.0-46.0 % Hct 42.3 LAB MCV(LOINC) 80.0-99.0 fL MCV 91.0 LAB MCH(LOINC) 27.0-33.0 pg MCH 30.6 LAB MCHC(LOINC) 32.0-36.0 G/dL MCHC 33.6 LAB RDW(LOINC) 11.5-15.5 % RDW 13.6 LAB PLT(LOINC) 150-450 10 3/mcL Platelet 162 LAB MPV(LOINC) 6.6-10.5 fL MPV 9.3 Performed By: #### CBC, ADIFF, ANEU, GFR, CMP, CA27, CA15 #### [address] [address] .AUTO DIFF Collected: 11/04/2017 Status: F Source: [facility] 11:35 AM [facility] REPOSITORY TYPE CODE TESTS RESULT OUT OF REFERENCE UNITS RANGE LAB LOLA(LOINC) 50.0-75.0 % Neutrophil % 64.9 LAB LYM(LOINC) 20.0-40.0 % Lymphocyte % 26.0 LAB MON(LOINC) 2.0-13.0 % Monocyte % 8.2 LAB EO(LOINC) 0.0-6.0 % Eosinophil % 0.5 LAB BAS(LOINC) 0.0-2.5 % Basophil % 0.4 LAB ABLYM(LOIN 0.90-4.32 10 3/mcL C) Lymphocyte, 1.50 Absolute LAB EMERALD(LOINC 0.09-1.40 10 3/mcL ) Monocyte, 0.50 Absolute LAB AEOS(LOINC 0.00-0.65 10 3/mcL ) Eosinophil, 0.00 Absolute LAB ABAS(LOINC 0.00-0.27 10 3/mcL ) Basophil, 0.00 Absolute Performed By: #### CBC, ADIFF, ANEU, GFR, CMP, CA27, CA15 #### [address] [address] .NEUABS Collected: 11/04/2017 Status: F Source: [facility] 11:35 AM [facility] REPOSITORY TYPE CODE TESTS RESULT OUT OF REFERENCE UNITS RANGE LAB ANEU(LOINC) 2.25-8.10 10 3/mcL Neutrophil, 3.70 Absolute Performed By: #### CBC, ADIFF, ANEU, GFR, CMP, CA27, CA15 #### [address] [address] .GFR Collected: 11/04/2017 Status: F Source: [facility] 11:35 AM [facility] REPOSITORY TYPE CODE TESTS RESULT OUT OF REFERENCE UNITS RANGE LAB GFRAA(LOINC ml/min/1.73 ) sqm GFR >60 [place] Result Comment: GFR Population mean for , Non- Americans Ages 20-29 = 116 mL/min/1.73 sq.m. Ages 30-39 = 107 mL/min/1.73 sq.m. Ages 40-49 = 99 mL/min/1.73 sq.m. Ages 50-59 = 93 mL/min/1.73 sq.m. Ages 60-69 = 85 mL/min/1.73 sq.m. Ages 70+ = 75 mL/min/1.73 sq.m. Chronic Kidney Disease: Less than 60 mL/min/1.73 square meters End Stage Renal Disease: Less than 15 mL/min/1.73 square meters LAB GFRNO(LOINC) ml/min/1.73sqm GFR Non- >60 Result Comment: GFR Population mean for , Non- Americans Ages 20-29 = 116 mL/min/1.73 sq.m. Ages 30-39 = 107 mL/min/1.73 sq.m. Ages 40-49 = 99 mL/min/1.73 sq.m. Ages 50-59 = 93 mL/min/1.73 sq.m. Ages 60-69 = 85 mL/min/1.73 sq.m. Ages 70+ = 75 mL/min/1.73 sq.m. Chronic Kidney Disease: Less than 60 mL/min/1.73 square meters End Stage Renal Disease: Less than 15 mL/min/1.73 square meters Performed By: #### CBC, ADIFF, ANEU, GFR, CMP, CA27, CA15 #### [place] [address] CMP Collected: 11/04/2017 Status: F Source: [facility] 11:35 AM [facility] REPOSITORY TYPE CODE TESTS RESULT OUT OF REFERENCE UNITS RANGE LAB GLU(LOINC) 82-115 mg/dL Glucose Level 98 LAB NA(LOINC) 136-145 mEq/L Sodium Level 145 LAB K(LOINC) 3.5-5.0 mEq/L Potassium Level 3.9 LAB CL(LOINC) 98-110 mEq/L Chloride 105 LAB CO2(LOINC) 22-32 mEq/L CO2 32 LAB EBAL(LOINC 4.0-15.0 mEq/L ) Electrolyte Balance 8.0 LAB BUN(LOINC) 8.0-22.0 mg/dL BUN 16.0 LAB CRE(LOINC) 0.50-1.20 mg/dL Creatinine Lvl (s) 0.63 LAB BC(LOINC) 10.0-22.0 ratio High BUN/Creatinine 25.4 Ratio LAB CA(LOINC) 8.4-10.1 mg/dL Calcium Lvl 9.5 LAB PROT(LOINC 6.0-8.5 G/dL ) Total Protein 7.3 LAB ALB(LOINC) 3.2-4.8 G/dL Albumin Level 4.0 LAB GLB(LOINC) 1.5-3.8 G/dL Globulin 3.3 LAB AG(LOINC) 0.9-1.6 ratio A/G Ratio 1.2 LAB BILT(LOINC 0.2-1.2 mg/dL ) Bili Total 0.4 LAB AP(LOINC) 38-126 U/L Alk Phos 93 LAB AST(LOINC) 8-34 U/L AST/SGOT 22 LAB ALT(LOINC) 10-49 U/L ALT/SGPT 31 Performed By: #### CBC, ADIFF, ANEU, GFR, CMP, CA27, CA15 #### [address] [address] CA27 Collected: 11/04/2017 Status: F Source: [facility] 11:35 AM [facility] REPOSITORY TYPE CODE TESTS RESULT OUT OF RANGE REFERENCE UNITS LAB CA27(LOINC) 0.0-38.6 U/mL High CA 27.29 46.2 Performed By: #### CBC, ADIFF, ANEU, GFR, CMP, CA27, CA15 #### [address] [address] CA15 Collected: 11/04/2017 Status: F Source: [facility] 11:35 AM [facility] REPOSITORY TYPE CODE TESTS RESULT OUT OF RANGE REFERENCE UNITS LAB CA15(LOINC) 0.0-47.0 U/mL High CA 15-3 48.1 Performed By: #### CBC, ADIFF, ANEU, GFR, CMP, CA27, CA15 #### [address] [address] ALLERGIES ALLERGIES No Allergies Records FoundENCOUNTERS ENCOUNTERS ADMIT/DISCHARGE ACCOUNT NUMBER ADMITTING ENCOUNTER LOCATION SOURCE CLASS 09/27/2018 [id number] Ambulatory [facility] ding:LAB Repository 09/27/2018 [id number] Ambulatory BMSBuilding: [facility] Repository 08/24/2018/08/24/20 [id number] Ambulatory BBuilding:OL [facility] Repository 05/25/2018/05/25/20 [id number] Ambulatory MURTAZA Murtaza 18 [facility] ding:RAD Foundation Repository 05/18/2018/05/18/20 [id number] Ambulatory MURTAZA Mur[place]za 18 [facility] ding:OLAB [facility] Repository 01/27/2018/01/28/20 [id number] Ambulatory MURTAZA Murtaza 18 [facility] ding:OLAB [facility] Repository 12/01/2017/12/01/19 [id number] Ambulatory MURTAZA Murtaza [address] [place] [address] ding:RAD [facility] Repository 11/04/2017/11/04/19 [id number] Ambulatory AULTMANBuild Murtaza 18 ing:LAB [facility] Repository PAYERS PAYERS ENCOUNTER GUARANTOR PAYER SUBSCRIBER SOURCE 09/27/2018 KENIA Puckett Primary EVERARDO Lawton [id number] Insurance:MEDICARE SIEGRISTDOB: [facility] [id number] [place] Number: Repository [id number]: [phone] [id number] [phone] () Date:2018-09-27 09/27/2018 Secondary EVERARDO K Jered Insurance:EVERENCE SIEGRISTDOB: [facility] [id number] Hospital Number: Repository [id number] Date:[id number] [address]LY: 09/27/2018 Tertiary NOT GIVENUNK [place] Insurance:SELF PAY [facility] Number: Effective Repository Date:2018-09-27 09/27/2018 KENIA Puckett Primary EVERARDO Hernándezoster [id number] Insurance:MEDICARE SIEGRISTDOB: [facility] PART A BPolicy [id number] [place], [place] Number: Repository [id number]: [phone] [id number] [phone] (HP) Date:2018-09-27 09/27/2018 Secondary [facility] [place] Insurance:EVERENCE SIEGRISTDOB: [facility] ASSOCIATION [facility] [id number] Hospital Number: Repository [id number] Date:[id number] [address] [place] [address]FL: 09/27/2018 Tertiary NOT GIVENUNK [place] Insurance:SELF PAY [facility]: Effective Repository Date:2018-09-27 08/24/2018 [facility] SIEGRISTDOB: Insurance:MEDICARE SIEGRISTDOB: [facility] PART B INSCOPolicy [id number] Repository [place]DEP[place]ENCE Number: [address] [place], [place] [id number] [email or web address] Date:2018-08-24 459[address]Fbh: (330) .COMTel: [phone] [phone] () Name:ROMA ()Tel: [phone]) Rplaerjdglyovy DUEPC [phone] (WP) [address] [place] [address]TF: 08/24/2018 Secondary [facility] Insurance:EVERENCE OF SIEGRISTDOB: [facility] Number: [id number] Repository [id number] 4 [place] Date:2018-08-24 - [place] [id number] [phone]: ([phone]) Name:CHIEF COMPLIANCE OFFICER [phone] [facility] [place] (HP)Tel: [phone]: (KZ) [phone] 05/25/2018 [facility]: Insurance:MEDICARE SIEGRISTDOB: [facility] PART BPolicy Number: [id number] Repository [place] [id number] [address] [place], [place] Date:2018-02-03 [place] [email or web address] [id number] [phone]: (330) .COMTel: ([phone]) Name:[facility] [phone] Administrators LLCPO (HP)Tel: (000) (HP)Tel: [phone]) [address] [address]Nmugptmmp, 000-0000 (WP) [phone] (WP) [place] [address]QP: 05/25/2018 Secondary [facility] Health Insurance:EVERENCE OF [facility]: [facility] INPolicy Number: [id number] Repository [id number] 4 [place] Date:2018-02-03 [place], [place] [id number] [address]Nau: ([phone]) Name:[facility] Frank [phone] [place] [address] (HP)Tel: [phone]: (WP) [phone] 05/18/2018 [facility]: Insurance[facility] PART BPolicy Number: [id number] Repository [place] [id number] [address] [place], [place] Date:2018-05-18 [place] [email or web address] [id number] [phone]: (330) .COMTel: ([phone]) Name:[facility] [phone] Administrators LLCPO (HP)Tel: (000) (HP)Tel: [phone]) [address] [address]Apfjzxazs, 000-0000 (WP) [phone] (WP) [place] [address]AK: 05/18/2018 [facility] Insurance:EVERENCE OF [facility]: [facility] INPolicy Number: [id number] Repository [id number] 4 [place] Date:2018-05-18 [place] [id number] [address]Luf: ([phone]) Name:CHIEF COMPLIANCE OFFICERBrandon Fonseca [phone] [address] [place] (HP)Tel: [phone]: (WP) [phone] 01/27/2018 [facility]: [facility] PART BPolicy Number: [id number] Repository [place] [id number] 4 [place], [place] Date:2018-01-27 [place] [email or web address] [id number] [phone]: (330) .COMTel: ([phone]) Name:[facility] [phone] Administrators LLCPO (HP)Tel: (000) (HP)Tel: [phone]) [address] [address]Tsjuucsrq, 000-0000 (WP) [phone] (WP) [place] [address]EI: 01/27/2018 Secondary [facility] Insurance:EVERENCE OF SIEISTB: [facility] INPolicy Number: [id number] Repository [id number] 4 [place] Date:2018-01-27[place], [place] 6247-09-37Unyi [address]Wmm: ([phone]) Name:[facility] Frank [phone] 483[facility] Centermarlon [place] (HP)Tel: [phone]: (WP) [phone] 12/01/2017 [facility]ARE [facility]: [facility] PART BPolicy Number: [id number] Repository CAROLINE [id number] [address] [facility], [place] Date:2017-11-27 [place] [email or web address] [id number] 169[address]Fad: (330) .COMTel: ([phone]) Name:[facility]UM[facility] [phone] Administrators LLCPO (HP)Tel: (000) (HP)Tel: ([phone]) [address] [address]Eygkdubij, 000-0000 (WP) [phone] (WP) [place] [address]JE: 12/01/2017 [facility] Insurance:EVERENCE OF [facility]: [facility] INPolicy Number: [id number] Repository [id number] 4 [place] Date:2017-11-27 [place] 5795-83-74Necw [address]Qfq: ([phone]) Name:[facility] Frank Ramesh-Polo Lirianoshaniquamarlon [place] (HP)Tel: [phone]: (WP) [phone] 11/04/2017 [facility]: [facility] PART BPolicy Number: [id number] Repository [place] [id number] [address] [place] [address] Date:2017-11-04 [place] [email or web address] [id number] 10[address]Jrx: (330) .COMTel: ([phone]) Name:[facility]UM[facility]arita 68Brianna-[phone] Administrators LLCPO (HP)Tel: (000) (HP)Tel: ([phone]) [address] [address]Olnljiwtk, 000-0000 (WP) [phone] (WP) [place] [address]DV: 11/04/2017 [facility] Insurance:EVERENCE OF SIEISTDOB: [facility] INPolicy Number: [id number] Repository [id number] 4 [place] Date:2017-11-04 [place], [place] 6910-15-09Vynf [address]Nbm: ([phone]) Name:[facility] Frank Chino2-1296 [place] (HP)Tel: [phone]: [phone]) [phone]
== END ==
PROVIDERS: Family Provider Family Medicine; PCP Family Medicine; Referring Provider Physician Assistant; Visit Provider Physician Assistant
DX: Z01.810 Encounter for preprocedural cardiovascular examination (principal); Z01.818 Encounter for other preprocedural examination
CPT/HCPCS: 36415; 80048; 85027; 93005

== ENCOUNTER 2019-07-19 10:00 | Outpatient (RCR) | payer MEDICARE, OTHER, SELFPAY ==
--- NOTE | 2019-04-13 15:11 | HP.OTEVAL_ITS ---
Patient's Visit Information EVERARDO ELIZONDO is a 83 year old F, referred to Occupational Therapy by Ean Ordoñez MD, with a diagnosis of right carpal tunel syndrome right. Date of Evaluation: 04/12/19 Occupational Therapist: Mayra Stern, OTR/Beatriz, CHT - Subjective Subjective: This 83 year old female was seen for OT eval following a CTR revision. pt initial CTR was performed in 2018 and states her symptoms did not improve and actually got worse. Pt went to see Dr. Ordoñez and found out she needed to have a CTR revision. pt currently is demo with limited ROM is painful while in orthosis- pt underwent CTR revision, wrist flexor tenosynovectomy, vasculariced hypothenar flap, insertion of neuragen nerve wrap and Rozina opposition transfer on 03/24/19. pt would like to return to performing her ADLS and IADLs at her PLOF. 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 - Pain right wrist/hand 4 Pain Intensity Range: 3, 6 - ROM Wrist: right 30/25 left 65/55 CMC: right 5 left 10 MP: right 40 left 65 IP: right 25 left 70 Opposition: right 5 ROM Comments: pt demo with healing - Strength Returned Goods Repairer: right NT left 50# Lateral Pinch: right NT left 14# Tripod Pinch: right NT left 14# - Sensation Thumb: right 4.74 left 3.22 Index: right 4.74 left 3.22 Middle: right 4.74 left 3.22 Ring: right 3.22 left 2.83 Little: right 3.22 left 2.83 - Quick DASH-Disab of Arm,Shoulder& Hand Quick DASH Score: 77.2725 - Goals Goal:100% adherence to protocol: Yes Comment: Ofelia Smith right hand Goal:Daily scar massage when approriate: Yes Goal:ROM equal to unaffected hand: Yes Goal:Returned Goods Repairer/Pinch strength at least 75% of unaffected hand: Yes Goal:No pain with affected hand use: Yes Goal:Full use of affected hand in daily activities including: Yes Goal:Improvement in sensation documented by Phelps-Steff: Yes Goal:Decrease scar hypersensitivity: Yes - Rehabilitation General Assessment: sx 03/24/19 for right revision carpal tunnel release wrist flexor tenosynovectomy, vascularized hypothenar flap, insertionof neuragen nerve wrap; Rozina opposition transfer- Pt arrives with forarm based thumb spica orthosis- c/o discomfort around thumb- pt demo with limited wrist and digit ROM, scar adhesions and pain. pt requires assistance from others due to the inability to use left UE for ADLS and IADLS. Pt would benefit from skilled OT services 1- 2x week for 8 weks to ensure recovery and returning pt to PLOF. Today pt was ed. on AROM following Dr. Ordoñez's Ofelia protocol. pt demo understanding of ex, was given handout and agree to POC. Rehabilitation Potential: Good - Anticipated Interventions Anticipated Interventions: A/AAROM/PROM, Scar Care, Triggerpoint Release, Desensitization, Sensory Retraining, Modalities, Orthoses, Joint Protection/Energy Conservation, Fine Motor Coord/Manav - Visit Plan Frequency: 1-2x /Week Duration: 2 Months TEXT: Thank you for the opportunity to evaluate your patient. For Medicare and Medicare HMO plans, please review the plan of care and approve it. It will need to be FAXED BACK to us at [phone] for Medicare purposes. Please let me know if there are questions or concerns regarding this plan of care. Physician Signature: Date:
--- NOTE | 2019-05-04 11:44 | HP.OTREVAL ---
Ean Ordoñez MD, It has been my pleasure to treat EVERARDO ELIZONDO over the last 4 visits for right carpal tunel syndrome right. Please see the progress note below for an update on the occupational therapy plan of care! Subjective: pt states she is doing all her ex. but feels like she is not getting anywhere- very sensitive Objective/Function: wrist ROM right initial ext 30/flex 25 current ext 60/flex 45. CMC intitial 5 current 15. MP initial 40 current 50 and IP flexion initial 25 current 40 pt demo opposition to LF PIP crease. pt is progressing well with ROM sensation of median nerve distribution still currently is compramised- monofiliment testing at 4.76 a improvement from 4.74 but still risk for injury. 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 Sincerely, Mayra Stern, OTR/L, CHT
--- NOTE | 2019-05-31 11:18 | OTREVAL_ITS ---
Ean Ordoñez MD, It has been my pleasure to treat EVERARDO ELIZONDO over the last 6 visits for right carpal tunel syndrome right. Please see the progress note below for an update on the occupational therapy plan of care! Subjective: pt arrives states she is doing more- but still has some sensation issues. Objective/Function: Pt demo monofilaments sensation right thumb at 3.84. IF 4.08. MF 4.56. RF 3.84. LF 3.84. pt demo improvment in sensation- middle finger still compromised at this time. wrist ROM right initial ext 30/flex 25 current ext 60/flex 45. CMC intitial 5 current 15. MP initial 40 current 50 and IP flexion initial 25 current 40 pt demo opposition to LF PIP crease. pt is progressing well with ROM. pts right radio station engineer strength current 15# Plan Frequency: 1-2x /Week Duration: 2 Months Plan: cont to follow protocol week 10 Anticipated Interventions Anticipated Interventions: A/AAROM/PROM, Scar Care, Triggerpoint Release, Desensitization, Sensory Retraining, Modalities, Orthoses, Joint Protection/Energy Conservation, Fine Motor Coord/Manav Please do not hesitate to contact me at [phone] by phone or if you have questions or concerns regarding this new plan of care! Sincerely, CK Christianson/L, CHT
--- NOTE | 2019-07-19 10:37 | HP.OTDCSUM ---
HP - OT D/C Summary It has been my pleasure to treat EVERARDO ELIZONDO under orders from Ean Ordoñez MD, for the diagnosis of right carpal tunel syndrome right for a total of 8 visit(s). Please see the following information for a summary of their discharge status. - Overall Improvement % Improvement: 80 - Objective Objective/Function: Pt demo monofilaments sensation right thumb at 3.22. IF 3.22. MF 3.84. RF 2.83. LF 2.83. pt demo improvment in sensation-. wrist ROM right initial ext 30/flex 25 current ext 60/flex 45. CMC intitial 5 current 15. MP initial 40 current 50 and IP flexion initial 25 current 40 pt demo opposition to LF PIP crease. pt is progressing well with ROM. pts right solar sales assessor strength current 21# left is 45#. PT demo good increase in sensation of right median nerve- pt still has sensory limitations but has returned to performing ADLs and IADLs at a RHYS IND. level- pt is using vision while working with hot/sharp or cold objects. pt is to cont with sensory re-ed tasks to cont. to encourage sensory return. pt d/c with HEP - Goals Patient Goals: Regain Mobility, Regain Strength, Decrease Pain, Improve Fine Motor Skills, Use Hand/Wrist/Arm Normally Again Goal:100% adherence to protocol: Yes Goal:Daily scar massage when approriate: Yes Goal:ROM equal to unaffected hand: Yes Goal:Rail Signal Mechanic/Pinch strength at least 75% of unaffected hand: Yes Goal:No pain with affected hand use: Yes Goal:Full use of affected hand in daily activities including: Yes Goal:Improvement in sensation documented by Robinson-Steff: Yes Goal:Decrease scar hypersensitivity: Yes - Plan Plan: D/C - D/C Information Discharge Comments: Pt was seen for 8 OT visits- Pt demo monofilaments sensation right thumb at 3.22. IF 3.22. MF 3.84. RF 2.83. LF 2.83. pt demo improvment in sensation-. wrist ROM right initial ext 30/flex 25 current ext 60/flex 45. CMC intitial 5 current 15. MP initial 40 current 50 and IP flexion initial 25 current 40 pt demo opposition to LF PIP crease. pt is progressing well with ROM. pts right solar sales assessor strength current 21# left is 45#. PT demo good increase in sensation of right median nerve- pt still has sensory limitations but has returned to performing ADLs and IADLs at a RHYS IND. level- pt is using vision while working with hot/sharp or cold objects. pt is to cont with sensory re-ed tasks to cont. to encourage sensory return. pt d/c with HEP If there are questions or concerns regarding this patient's occupational therapy, please fell free to call me at [phone]. Thank you for the referral of this patient. Sincerely, Mayra Stern, OTR/L, CHT
== END 2019-07-19 19:00 | disposition home or self-care (01) ==
LOC: OT 10:00
PROVIDERS: Family Provider Family Medicine; PCP Family Medicine; Referring Provider Orthopaedic Surgery; Visit Provider Orthopaedic Surgery
DX: G56.01 Carpal tunnel syndrome, right upper limb (principal)
CPT/HCPCS: 97035; 97110; 97140; 97166; 97530